=== PATIENT | male | born 1970 | race African-American/Black ===

== ENCOUNTER 2016-12-12 17:12 | Emergency (ER) | payer OTHER ==
--- NOTE | ~2016-12-12 | EKG ---
PATIENT: MUMTAZ HENDRICKSON UNIT #: [id number] Ventricular Rate: 94 BPM Atrial Rate: 94 BPM P-R Interval: 170 ms QRS Duration: 68 ms Q-T Interval: 330 ms QTC Calculation(Bezet): 412 ms P [place]: 48 degrees Calculated R [place]: -5 degrees Calculated T [place]: 32 degrees Diagnosis Line: Normal sinus rhythm Diagnosis Line: Septal infarct (cited on or before 21-OCT-2013) Diagnosis Line: Abnormal ECG Diagnosis Line: When compared with ECG of 21-OCT-2013 10:20, Diagnosis Line: Aberrant conduction is no longer Present Diagnosis Line: Confirmed by LEWIS GRIFFIN MD ([id number]) on 12/21/2016 Diagnosis Line: 11:51:16 AM INTERPRETING MD: GABY SUAREZ
--- NOTE | ~2016-12-12 | CR72 ---
[facility] A Service of [facility] & [facility] RADIOLOGY TEXT RESULTS PATIENT: MUMTAZ HENDRICKSON LOCATION: SED : 72 UNIT #: [id number] AGE: [address]: Marvin Padilla MD SEX: M ORDER DR: [id number] [place] [id number] E MR#: [id number] Acc #: [id number] NAME: MUMTAZ HENDRICKSON : 1970 SEX: M STUDY DATE/TIME: 12/12/2016 15:47 UNIT: SED ROOM: STUDY DESCRIPTION: CR Chest Single View Portable Attending Physician: Marvin Padilla M.D. Ordering Physician: Marvin Padilla M.D. Primary Care Physician: Armin Lane A.P.R.N. MEDICAL IMAGING REPORT This report is preliminary unless electronic signature is present. EXAM Portable chest. DATE OF EXAM 12/12/2016 INDICATIONS Foot swelling today, myocardial infarction last week. Hypertension. COMPARISON Comparison with 12/06/2016. FINDINGS Low-volume inspiration with bibasilar atelectasis. Heart size stable. Visualized osseous structures are unremarkable. IMPRESSION No active disease. Dictated by... Noman Arellano M.D. THIS IS AN ELECTRONICALLY VERIFIED REPORT Noman Arellano M.D. at 12/13/2016 10:02 AM TAMIR/manuel TD: 12/12/2016 19:59 JOB #: [id number] MEDICAL IMAGING REPORT Page 1 of 1
[~2016-12-12 17:12] MED LIST: APRESOLINE PO; HEART MED; HYDROCODON-ACE1 EAC7 PO; LISINOPRIL PO; NORVASC PO
[2016-12-12 17:24] LABS: ALBUMIN SERUM 4.4 g/dL (3.5-5.0); BILIRUBIN,TOTAL 0.5 mg/dL (0.2-2.0); CALCIUM SERUM 8.9 mg/dL (8.4-10.2); GLOM FILT RATE Estimated 104.9 mL/min (>60); POTASSIUM 4.1 mmol/L (3.5-5.1); PROTEIN TOTAL SERUM 7.2 g/dL (6.0-8.3)
== END 2016-12-12 18:30 | disposition home or self-care (01) ==
LOC: SED 17:12
PROVIDERS: Emergency Medicine
DX: R60.0 Localized edema (principal); F17.210 Nicotine dependence, cigarettes, uncomplicated; Z79.899 Other long term (current) drug therapy; Z88.0 Allergy status to penicillin
CPT/HCPCS: 36415; 71010; 80053; 83880; 93005; 99283